=== PATIENT | female | born 1990 | race Caucasian/White ===

== ENCOUNTER → 2023-09-12 12:08 | Outpatient (REF) | payer OTHER, SELFPAY | LOC: HWRAD 12:08 | PROVIDERS: ATTENDING PHYSICIAN Student in an Organized Health Care Education/Training Program | DX: M54.6 Pain in thoracic spine (principal) | CPT/HCPCS: 72072 ==

== ENCOUNTER → 2024-05-03 14:52 | Outpatient (REF) | payer OTHER, SELFPAY | LOC: PNTC 14:52 | PROVIDERS: ATTENDING PHYSICIAN Obstetrics & Gynecology | DX: Z36.0 Encounter for antenatal screening for chromosomal anomalies (principal); Z36.82 Encounter for antenatal screening for nuchal translucency | CPT/HCPCS: 76801; 76813 ==

== ENCOUNTER → 2024-06-22 15:56 | Outpatient (REF) | payer OTHER, SELFPAY | LOC: PNTC 15:56 | PROVIDERS: ATTENDING PHYSICIAN Obstetrics & Gynecology | DX: O09.519 Supervision of elderly primigravida, unspecified trimester (principal) | CPT/HCPCS: 76811 ==

== ENCOUNTER 2024-06-23 14:55 | Emergency (ER) | payer OTHER, SELFPAY ==
[2024-06-23 14:57] VITALS: BP 138/70
[2024-06-23 16:10] VITALS: BMI 28.4
[2024-06-23 16:29] LABS: Urine Albumin Negative (Neg - Trace); Urine Bilirubin Negative (Negative); Urine Character Clear (Clear); Urine Color Yellow; Urine Glucose Negative (Negative); Urine Ketone Negative (Negative); Urine Leukocyte Negative (Negative); Urine Nitrite Negative (Negative); Urine Occult Blood Negative (Negative); Urine Specific Gravity 1.005 (<1.030); Urine Urobilinogen Negative (Neg - 1+)
--- NOTE | 2024-06-23 16:51 | ED.GENMED ---
History of Present Illness
General
Chief Complaint: Urinary Symptoms
Time Seen by Provider: 06/23/24 16:22
History of Present Illness
History of Present Illness:
TIME OF INITIAL ENCOUNTER: 4:15 PM
HPI: The patient presents due to abdominal discomfort. Over the past week and a half, she has been having 'a cold' like symptoms along with some chills and feeling hot at times. She denies having any fever. She did not have any dysuria or
increased urinary frequency. He is 22 weeks . She was seen by primary care today who sent her here as she was having rather pain in the right lower quadrant. However upon arrival here her symptoms have essentially completely resolved.
She does however have an ongoing headache that started yesterday that was mild in onset progression.
EXAM:
GENERAL: Well appearing in no distress
HEENT: Moist oral mucosa, excellent chin to chest�no meningeal signs
CARDIOVASCULAR: No murmurs, normal heart rate, regular rhythm, No chest wall tenderness
PULMONARY: No respiratory distress, breath sounds are clear and equal
ABDOMEN: Soft with no peritoneal signs, no tenderness, I reassessed patient a second time and there is again is no abdominal tenderness
NEUROLOGIC: Excellent strength all extremities, no coordination deficits
PSYCHIATRIC: Appropriate mental status, normal insight and judgement
EXTREMITIES: Nontender, no edema, moves all extremities equally
SKIN: No rash, no lesions
NUMBER AND COMPLEXITY OF PROBLEMS ADDRESSED AT THE ENCOUNTER
� Chronic conditions affecting care: Has had preeclampsia in the past
� Acute Exacerbation and/or Progression of Chronic Illness: This is an acute problem
� Differential Diagnosis includes: Viral syndrome, UTI, doubt appendicitis as symptoms rapidly spontaneously improved, ovarian cyst also unlikely as she just had an ultrasound yesterday
AMOUNT AND/OR COMPLEXITY OF DATA TO BE REVIEWED AND ANALYZED
� I performed an independent evaluation of and my interpretation is:
EKG:
CT:
X-rays:
Laboratory Studies: Urinalysis shows no blood or signs of infection
Other: heart rate equals 140
� Review of other/old records: I reviewed ultrasound report from April 2024 that could not visualize the right ovary
� Clinical information was obtained by an independent historian: Spoke to significant other at bedside
� Prescriptions/Medications Considered but not given:
� Further testing considered but not performed:
RISK OF COMPLICATIONS AND/OR MORBIDITY OR MORTALITY OF PATIENT MANAGEMENT
� Social determinants of health affecting care: Lives at home
� Discussion with other providers:
� Escalation of care including admission/observation vs risk of discharge considered: The patient is 22 weeks who presents with right lower quadrant pain that resolved spontaneously just prior to arrival. Her exam is
unremarkable. Urinalysis normal. Although she does have a headache it was gradual in onset and progression. She appears very comfortable with no meningeal signs and a nonfocal neurologic examination.
ANY OTHER UPDATES:
Past History
Past History
ED Past Medical History: Asthma and Other ()
Social History
Tobacco: Non-smoker
Living: with family
Family History
Family History: Other (reviewed and noncontributory)
Phy Exam
Physical Exam
Physical Exam:
See HPI
Course
Orders/Labs/Results
Orders:
Orders
06/23/24 16:13
Urinalysis Reflex To Culture Urgent
Date Specimen was Collected: 06/23/24
Time Specimen was Collected: 15:02
06/23/24 17:00
Heart Tones ONCE
Vital Signs
Initial and Last Documented VS:
Initial Vital Signs
Temp Pulse Resp BP Pulse Ox
36.9 C 95 18 138/70 100
06/23/24 14:57 06/23/24 14:57 06/23/24 14:57 06/23/24 14:57 06/23/24 14:57
Last Documented Vital Signs
Temp Pulse Resp BP Pulse Ox
36.9 C 95 18 138/70 100
06/23/24 14:57 06/23/24 14:57 06/23/24 14:57 06/23/24 14:57 06/23/24 14:57
*Critical Care Note
Total Time (30-74mins, 75-104mins- exclusive of procedures): Not Applicable
ED Attending Note
-
Portions of this chart may have been created with voice recognition software.� Occasional wrong word or��sound alike� substitutions may have occurred due to the inherent limitations of voice recognition software.
Discharge Plan
Departure
Patient Disposition: Home (Routine Discharge)
Date of Disposition: 06/23/24
Time of Disposition: 16:49
Patient with high blood pressure during this ER visit?: Yes
Discharge Problem:
Abdominal pain
Prescriptions:
No Action
PNV cmb#95-ferrous fumarate-FA [] 1 EACH tablet
1 ea PO DAILY
calcium carbonate 500 MG tablet
500 mg PO DAILY
acetaminophen 325 MG tablet
650 mg PO Q4HPRN PRN (Reason: mild pain) 0RF
sennosides-docusate sodium 1 TABLET tablet
1 tab PO DAILYPRN PRN (Reason: constipation) Qty: 30 0RF
ibuprofen 600 MG tablet
600 mg PO Q6HPRN PRN (Reason: cramps) Qty: 60 0RF
labetalol 200 MG tablet
200 mg PO BID Qty: 60 2RF
Referrals:
Marilou Eid PA-C [Family Provider] -
Activity Restrictions/Additional Instructions:
Your symptoms may related to a viral illness. The urinalysis shows no sign of blood (therefore very low suspicion for a kidney stone) and no sign of infection�meaning no sign of UTI or kidney infection. You have no significant tenderness on
examination therefore I recommend against any imaging. Continue Tylenol for headache. Return here if worse or other concerns.
Interventions
Interventions:
*Risk Screen - Suicide Last Done: 06/23/24 14:57
*General Assessment Last Done: 06/23/24 14:57
*Neglect/Abuse Screening Last Done: 06/23/24 14:57
*ED COVID-19 Vaccine History Last Done: 06/23/24 16:10
AR-Rjprrh-Phptbqqbhv Assessment Last Done: 06/23/24 16:10
ED-Female Genitourinary Assessment Last Done: 06/23/24 16:10
Discharge Date and Time
Print Language: DIVEHI
== END 2024-06-23 17:23 | disposition home or self-care (01) ==
LOC: EMR 14:55
PROVIDERS: Emergency Medicine; EMERGENCY PHYSICIAN Emergency Medicine; FAMILY PHYSICIAN Physician Assistant Medical
DX: O99.891 Other specified diseases and conditions complicating pregnancy (principal); R10.31 Right lower quadrant pain; Z3A.22 22 weeks gestation of pregnancy; J45.909 Unspecified asthma, uncomplicated
CPT/HCPCS: 99282; 81003

== ENCOUNTER → 2024-07-20 15:26 | Outpatient (REF) | payer OTHER, SELFPAY | LOC: PNTC 15:26 | PROVIDERS: ATTENDING PHYSICIAN Obstetrics & Gynecology | DX: Z36.2 Encounter for other antenatal screening follow-up (principal) | CPT/HCPCS: 76815 ==

== ENCOUNTER → 2024-08-09 16:01 | Outpatient (REF) | payer OTHER, SELFPAY | LOC: PNTC 16:01 | PROVIDERS: ATTENDING PHYSICIAN Obstetrics & Gynecology | DX: O09.529 Supervision of elderly multigravida, unspecified trimester (principal); O34.211 Maternal care for low transverse scar from previous cesarean delivery; Z87.59 Personal history of other complications of pregnancy, childbirth and the puerperium | CPT/HCPCS: 76816 ==

== ENCOUNTER → 2024-08-17 15:56 | Outpatient (REF) | payer OTHER, SELFPAY | LOC: REG 15:56 | PROVIDERS: ATTENDING PHYSICIAN Student in an Organized Health Care Education/Training Program | DX: O09.522 Supervision of elderly multigravida, second trimester (principal) | CPT/HCPCS: 36415; 86850; 86900; 86901; J2790 ==

== ENCOUNTER → 2024-09-23 16:01 | Outpatient (REF) | payer OTHER, SELFPAY | LOC: PNTC 16:01 | PROVIDERS: ATTENDING PHYSICIAN Obstetrics & Gynecology | DX: O09.529 Supervision of elderly multigravida, unspecified trimester (principal); O34.219 Maternal care for unspecified type scar from previous cesarean delivery; O14.00 Mild to moderate pre-eclampsia, unspecified trimester | CPT/HCPCS: 76816 ==

== ENCOUNTER → 2024-10-12 12:35 | Outpatient (REF) | payer OTHER, SELFPAY | LOC: PNTC 12:35 | PROVIDERS: ATTENDING PHYSICIAN Obstetrics & Gynecology | DX: O36.8190 Decreased fetal movements, unspecified trimester, not applicable or unspecified (principal) | CPT/HCPCS: 59025; 76815 ==

== ENCOUNTER → 2024-10-28 15:36 | Outpatient (REF) | payer OTHER, SELFPAY | LOC: PNTC 15:36 | PROVIDERS: ATTENDING PHYSICIAN Obstetrics & Gynecology | DX: O36.8190 Decreased fetal movements, unspecified trimester, not applicable or unspecified (principal) | CPT/HCPCS: 59025 ==

== ENCOUNTER 2024-11-06 20:25 | Inpatient (IN) | payer OTHER, SELFPAY ==
[2024-11-06 20:34] VITALS: BP 135/85; BMI 32.9
[2024-11-06] MEDS: LR 1000 IV (21:00)
[2024-11-06 21:49] LABS: % Basophils 0.5 % (0-2); % Eosinophils 1.3 % (0-6); % Immature Granulocytes 1.2 % (0-0.5); % Lymphocytes 16.9 % (20.5-51.1); % Monocytes 6.3 % (1.7-9.3); % Neutrophils 73.8 % (42.2-75.2); Absolute Basophils 0.1 10^3/uL (0-0.2); Absolute Eosinophils 0.2 10^3/uL (0-0.7); Absolute Immature Granulocytes 0.2 10^3/uL (0-0.05); Absolute Lymphocytes 2.2 10^3/uL (1.2-3.4); Absolute Monocytes 0.8 10^3/uL (0.1-0.6); Absolute Neutrophils 9.6 10^3/uL (1.4-6.5); Hematocrit 36.1 % (37.0-47.0); Hemoglobin 12.7 g/dL (12.0-16.0); Mean Corp Hgb Conc. 35.2 g/dL (33.0-37.0); Mean Corpuscular Hgb 31.8 pg (27.0-31.0); Mean Corpuscular Volume 90.5 fL (81.0-99.0); Mean Platelet Volume 11.3 fL (7.4-10.4); Nucleated Red Blood Cells % 0 %; Platelet Count 241 10^3/uL (130-400); Red Blood Cell Count 3.99 10^6/uL (4.20-5.40); Red Cell Dist. Width 13.2 % (11.5-14.5)
--- NOTE | 2024-11-06 22:11 | HPS.HSE ---
Family Physician
-
Family Physician: NOT KNOW UNKNOWN - PT DOES
Chief Complaint
-
rupture of membranes
History of Present Illness
HPI: Patient is a 34yo @39.5 who presents with complaints of a gush of fluid at 1845. She has continued to leak fluid since. She denies contractions or VB. +FM.
complications:
- Hx C/Sx1 for NRFHTs @3cm
- Advanced maternal age
- Rh negative, s/p Rhogam
- Hx PP PEC w/ SF
PMHx: benign heart murmur, exercise induced asthma
Meds: bASA, PNV
Surghx: wisdom teeth, C/Sx1
All: ceclor, bactrim
Socialhx: denies tobacco, etoh or illicit drug use
Famhx: MGF/PGF w/ MS, mom/dad w/ HTN, MGF- stomach cancer, MFM- multiple myeloma
OBHx: 03/2020 [facility]
labs: blood type Aneg, Ab positive- repeat negative, RPR nonreactive, UCx neg, HBsAg neg, HIV neg, Rubella immune, Hep C neg, 1hr 108, GBS neg, GCCT neg
FHT: 140 baseline/moderate variability/+accelerations/no decelerations
Valatie: no contractions
Medical History
Past Medical History
Past Medical History: Reports Other
Additional Past Medical History:
benign heart murmur, exercise induced asthma
Past Surgical History: Reports
Social History
Tobacco: Non-smoker
Alcohol: None
Drug: None
Family History
Family History: Other
Allergies / Home Medications
Allergies reflects when Allergies were last updated in [facility].
Home Medications with original date entered in [facility]
Allergy/Medication List:
All: ceclor, bactrim
Meds: bASA, PNV
Review of Systems
-
A 12 point ROS was completed and negative except as noted: Yes
Physical Exam
Vital Signs
Vital Signs
Temp Pulse Resp BP
99.0 F 88 18 135/85
11/06/24 20:34 11/06/24 20:34 11/06/24 20:34 11/06/24 20:34
Physical Exam
General: Well Developed and Well Nourished
HEENT: NormoCephalic
Respiratory: Non Labored Respirations
Cardiac: Regular Rhythm
Genito-urinary: Other (SSE: positive pooling and ferning, negative nitrazine; SVE: cl/th/hi)
Skin: Warm and Dry
Neuro: Awake
Psych: Calm
Laboratory Results
-
11/06/24 21:37
Impression/Plan
-
IMPRESSION:
Patient is a 34yo @39.5 SROM, RCS, declines TOLAC
PLAN:
- After discussion with patient and her regarding TOLAC vs RCS and risks/benefits, patient desires repeat C/S. She also has completed her family status and desires bilateral salpingectomy. Risks, benefits and alternatives discussed including
bleeding, infection, damage to surrounding structures, and need for future operations reviewed. Patient is aware bilateral salpingectomy is a permanent procedure and she will no longer be able to conceive children naturally. Consents were previously
signed in the office. Clindamycin, gentamicin, and azithromycin ordered for antibiotic prophylaxis. Anesthesia notified. Plan to proceed with repeat section and bilateral salpingectomy
[2024-11-06] MEDS: CLEOCIN 50 IV (22:17)
[2024-11-06] MEDS: BICITRA 30 ML PO (22:23)
[2024-11-06] MEDS: TYLENOL 1000 MG PO (22:23)
[2024-11-06] MEDS: GENTAMICIN 61.875 MG IV (22:30)
[2024-11-06] MEDS: ZITHROMAX INFUSION 250 IV (22:30)
[2024-11-06] MEDS: PITOCIN 30 UNITS/NSS 500 ML IV (22:55)
--- NOTE | 2024-11-07 00:04 | OR.RPT ---
Operative Report
Operative Report
Procedure date: 11/06/2024
Preop diagnosis: IUP @39.5, spontaneous rupture of membranes, history of C/Sx1, declines TOLAC, Rh negative, Advanced maternal age
Postop diagnosis: same
Procedure: Repeat low transverse section
Surgeon: Phuong
Anesthesia: Spinal, Chambers
QBL: 430mL
Findings: Viable male born at 2254, Apgars 8/9, uterus not able to be exteriorized secondary to tight abdominal muscles, unable to adequately visualize fallopian tubes for salpingectomy, so it was not performed- patient aware
Indication: Patient is a 34yo @39.5 who presented to Labor and Delivery with complaints of spontaneous rupture of membranes. She was found to be ruptured. Patient was counseled on a trial of labor after section versus proceeding
with repeat section. After discussion with patient and her , she would like to proceed with repeat section. She has also completed her family status and would like a bilateral salpingectomy. Risks, benefits and alternatives
discussed and all questions answered. Consents were previously signed in the office. Anesthesia was notified.
Procedure: Patient was taken to the operating room where spinal anesthesia was administered and found to be adequate. 5mg/kg of Gentamicin, 900mg Clindamycin and 500mg of Azithromycin were given for antibiotic prophylaxis. The abdomen was prepped
with ChloraPrep. The patient was draped in the normal sterile fashion. She was placed in the dorsal supine position with a left lateral tilt. A Pfannenstiel incision was made with a 10 blade and carried down to the fascia with a scalpel. Hemostasis
achieved with Bovie. The fascia was incised and dissected laterally with Delvalle scissors. The superior aspect of the fascia was grasped with Clare clamps. The underlying rectus fascia was sharply dissected with Delvalle scissors. In a similar fashion the
inferior aspect of the fascia was elevated with Clare clamps and the rectus muscle was dissected off with Delvalle scissors. The rectus muscles were down the midline to the level of the pubic symphysis with manual dissection. The peritoneum
was bluntly entered and extended using manual traction.
Martinez retractor and bladder blade were placed revealing good visualization of the bladder. The vesicouterine peritoneum was identified. A thick lower uterine segment was noted. The lower uterine segment was incised with a scalpel. Clear fluid
noted at entry. The uterine incision was extended bluntly with lateral and upward traction.
The fetus was in cephalic presentation. The head was elevated out of the pelvis with special attention paid to avoid using the uterine incision as a fulcrum. Gentle fundal pressure was applied once the head was brought to the incision and the head
delivered through the hysterotomy. The rest of the infant delivered without difficulty. Delayed cord clamping was performed per neonatology. The was handed off to the geometry professor. IV oxytocin was started to facilitate uterine contractions.
The placenta was delivered with fundal massage and gentle downward traction. The uterus was not able to be exteriorized due to tight abdominal muscles. Duarte retractor was placed in the abdomen. Allis clamps were placed at the apices of the
hysterotomy. The inside of the uterus was wiped with a lap sponge to assure complete removal of placental membranes. Fundal massage was performed and uterus was firm. The uterine incision was closed with 0 Vicryl in a running locked fashion. A
horizontal imbricating stitch was done on the hysterotomy with 0 Vicryl. There was oozing along the hysterotomy and figure of eights were placed with 2-0 Vicryl to achieve hemostasis. Bovie cautery was used on oozing areas of the serosa. The
hysterotomy was inspected and noted to be hemostatic. The fallopian tubes were not able to be adequately visualized so salpingectomy was not performed. The Duarte retractor was removed from the abdomen. Blood clots and fluid were wiped out of the
abdomen and pelvis with moist laparotomy sponges. The hysterotomy was inspected again and was hemostatic.
The rectus muscles were inspected and bleeding on the right rectus muscle was controlled with Bovie cautery. The rectus muscles were examined again and were hemostatic. The fascial layer was closed in a running continuous fashion using 0 Vicryl. The
subcutaneous tissue was copiously irrigated and any small bleeding vessels were cauterized with Bovie cautery. The subcutaneous tissue was reapproximated in a running continuous fashion with 2-0 Plain. The skin was closed with 4-0 Vicryl in a
subcuticular fashion and covered with skin glue. There was oozing from the skin edges and pressure dressing was placed. The patient tolerated the procedure well. All sponge and instrument counts were correct times two. The patient was taken to the
recovery room in stable condition. Hutchins catheter was draining clear urine at the end of the procedure.
[2024-11-07] MEDS: TORADOL 15 MG IV ×4 (04:18→22:52)
[2024-11-07] MEDS: TYLENOL 650 MG PO ×4 (04:19→22:51)
[2024-11-07 05:51] LABS: Hemoglobin 11.8 g/dL (12.0-16.0); Mean Corp Hgb Conc. 34.7 g/dL (33.0-37.0); Mean Corpuscular Hgb 31.5 pg (27.0-31.0); Mean Corpuscular Volume 90.7 fL (81.0-99.0); Mean Platelet Volume 11.2 fL (7.4-10.4); Platelet Count 195 10^3/uL (130-400); Red Blood Cell Count 3.75 10^6/uL (4.20-5.40); Red Cell Dist. Width 13.2 % (11.5-14.5); White Blood Cell Count 22.2 10^3/uL (4.8-10.8)
[2024-11-07] MEDS: PRENATAL PLUS 1 TABLET PO (09:09)
[2024-11-07] MEDS: RHOGAM 300 MCG IM (12:34)
--- NOTE | 2024-11-07 20:03 | W.PN.ANS.POP ---
Anesthesia Post Operative
- Anesthesia Post Op Note
Vital Signs Stable-See Nursing Note: Yes
Airway Patent: Yes
Adequate Pain Control: Yes
Change in Mental Status: No
Current Postoperative Nausea & Vomiting: No
Anesthesia Complications: No
General Anesthetic Recall: No
Unplanned Admission: No
Post Op Hydration Adequate: Yes
- -
Pt awake and alert- resting with no anesthesia c/o at time of post op visit.
[2024-11-08] MEDS: MOTRIN 600 MG PO ×3 (05:56→20:24)
[2024-11-08] MEDS: TYLENOL 650 MG PO ×3 (05:57→20:24)
[2024-11-09] MEDS: TYLENOL 650 MG PO (06:20)
[2024-11-09] MEDS: MOTRIN 600 MG PO (06:20)
--- NOTE | 2024-11-09 10:55 | W.DS.TRANS ---
DC Summary - [employer]
-
Discharge Instructions:
Discharge Diagnosis/Procedures rcs
Instructions:
Stand-Alone Forms: LDRP Delivery
Changes to Home Medications: No
Discharge Medications:
DC Medications w/original date entered in [facility]
vitamin-ferrous fumarate 28 mg iron-folic acid 800 mcg tablet ( Tablet) 1 tab PO DAILY 11/06/24
ibuprofen 600 mg tablet 600 mg PO Q6HPRN PRN cramps #90 tabs 11/09/24
Home Medication Changes
Pending Results: No
Total time spent discharging patient (in min): 15
[2024-11-09] MEDS: PRENATAL PLUS PO ×2 (11:17→14:02)
[2024-11-09 12:04] LABS: Syphilis/T. pallidum Ab Reflex Negative (Negative)
== END 2024-11-09 12:04 | disposition home or self-care (01) | DRG 788 ==
LOC: LDRP 20:25
PROVIDERS: ADMITTING PHYSICIAN Student in an Organized Health Care Education/Training Program
PROC: 10D00Z1 Extraction of Products of Conception, Low, Open Approach (ICD-10-PCS; 2024-11-06)
PROC: 3E0334Z Introduction of Serum, Toxoid and Vaccine into Peripheral Vein, Percutaneous Approach (ICD-10-PCS; 2024-11-07)
DX: O34.211 Maternal care for low transverse scar from previous cesarean delivery (principal); N85.8 Other specified noninflammatory disorders of uterus; Z3A.39 39 weeks gestation of pregnancy; Z37.0 Single live birth; O26.893 Other specified pregnancy related conditions, third trimester; Z67.11 Type A blood, Rh negative
CPT/HCPCS: 85025; 85027; 85461; 86780; 86850; 86900; 86901; J2790